=== PATIENT | female | born 1935 | race Caucasian/White ===

== ENCOUNTER → 2023-10-08 10:12 | Outpatient (REF) | payer MEDICARE, BC, SELFPAY | LOC: MRI 3T 10:12 | PROVIDERS: ATTENDING PHYSICIAN Student in an Organized Health Care Education/Training Program; FAMILY PHYSICIAN Family Medicine | DX: M25.559 Pain in unspecified hip (principal); M76.892 Other specified enthesopathies of left lower limb, excluding foot; B02.29 Other postherpetic nervous system involvement; M99.83 Other biomechanical lesions of lumbar region | CPT/HCPCS: 73721 ==

== ENCOUNTER 2023-11-09 11:21 | Emergency (ER) | payer MEDICARE, BC, SELFPAY ==
[2023-11-09] VITALS (9 sets, daily range): BP systolic 110–171; BP diastolic 25–97; PULSE 67–70; BMI 31.0
[2023-11-09 12:04] LABS: % Basophils 0.6 % (0-2); % Eosinophils 2.3 % (0-6); % Immature Granulocytes 0.3 % (0-0.5); % Lymphocytes 19.6 % (20.5-51.1); % Neutrophils 68.2 % (42.2-75.2); Absolute Basophils 0.1 10^3/uL (0-0.2); Absolute Eosinophils 0.2 10^3/uL (0-0.7); Absolute Lymphocytes 1.5 10^3/uL (1.2-3.4); Absolute Monocytes 0.7 10^3/uL (0.1-0.6); Absolute Neutrophils 5.3 10^3/uL (1.4-6.5); Hemoglobin 14.2 g/dL (12.0-16.0); Mean Corpuscular Hgb 31.2 pg (27.0-31.0); Mean Corpuscular Volume 94.5 fL (81.0-99.0); Mean Platelet Volume 10.3 fL (7.4-10.4); Nucleated Red Blood Cells % 0 %; Platelet Count 267 10^3/uL (130-400); Red Blood Cell Count 4.55 10^6/uL (4.20-5.40); Red Cell Dist. Width 12.5 % (11.5-14.5); White Blood Cell Count 7.8 10^3/uL (4.8-10.8)
[2023-11-09 12:29] LABS: Troponin I < 0.012 ng/ml
[2023-11-09 12:37] LABS: ALT (SGPT) 24 U/L (0-35); AST (SGOT) 31 U/L (14-36); Alkaline Phosphatase 74 U/L (38-126); Blood Urea Nitrogen 19 mg/dl (7-17); Calcium 9.7 mg/dl (8.4-10.2); Carbon Dioxide 25 mmol/L (22-30); Chloride 109 mmol/L (98-107); Glucose 90 mg/dl (70-99); Sodium 139 mmol/L (135-145); Total Bilirubin 0.4 mg/dl (0.2-1.3); Total Protein 6.7 g/dl (6.3-8.2); eGFR > 60.00
[2023-11-09 14:05] LABS: Urine Albumin Negative (Neg - Trace); Urine Bilirubin Negative (Negative); Urine Character Clear (Clear); Urine Color Yellow; Urine Glucose Negative (Negative); Urine Ketone Negative (Negative); Urine Leukocyte 2+ (Negative); Urine Nitrite Negative (Negative); Urine Occult Blood Negative (Negative); Urine Urobilinogen Negative (Neg - 1+)
[2023-11-09 14:25] LABS: Urine Bacteria Many (Negative); Urine White Cell 26-30 /HPF (0-5)
[2023-11-09 14:48] LABS: TSH Reflex To Free T4 3.03 uIU/ml (0.47-4.68)
--- NOTE | 2023-11-09 15:51 | EDRN ---
Dr. Meraz in to see pt at this time.
[2023-11-09] MEDS: ROCEPHIN 1000 MG IV (16:08)
--- NOTE | 2023-11-09 18:08 | ED.GENMED ---
Addendum entered and electronically signed by Luis Perez PA-C 11/12/23 07:56:
UCx shows 100k Klebsiella, sensitive to cephalosporins. No changes
Original Note:
History of Present Illness
General
Chief Complaint: Heart Rate Problem
Source: patient
Exam Limitations: none
Time Seen by Provider: 11/09/23 12:47
Nursing documentation reviewed up to this point in time: agreed with
Travel History
Have you had any contact with someone who has COVID-19?: No
Do you have any symptoms of coronavirus? Fever > 100 degrees, chills, cough, shortness of breath, sore throat, loss of taste or smell, muscle aches, or headache?: No
History of Present Illness
History of Present Illness:
88-year-old female with medical history as documented who presents to the emergency room for evaluation of palpitations. Patient reports that she has been having symptoms intermittently for 4 weeks somewhat more intense over the past 4 to 5 days.
She says that she will have brief episodes (seconds long) where she feels her heart beating irregularly/hard. She says that there is no clear trigger. There is no exertional component. She says that over the past day or 2 she also noticed that
she is having an odd dizzy sensation that will last for a minute or 2 and then resolved. She decided to come to the emergency room for assessment. She has not had any chest pain. She denies any shortness of breath. She denies any headache. No
change in vision or speech. No weakness or numbness in her extremities. She denies any abdominal or flank pain. She does admit that she has been having some increased urinary frequency over the past few days concerning for possible UTI. She has
seen cardiology in the past Dr. Sanabria but has no cardiac history that she knows of.
Past History
Past History
ED Past Medical History: Other (Postherpetic neuralgia, DJD)
ED Past Surgical History: None
Social History
Tobacco: Non-smoker
Alcohol: None
Review of Systems
Review of Systems
All Other Systems: ROS reviewed and negative except as documented in HPI and ROS
Constitutional: Denies fever or chills
EENT: Denies sore throat or runny nose
Respiratory: Denies cough or trouble breathing
Cardiac: Reports palpitations; Denies chest pain
ABD/GI: Denies abdominal pain, nausea or vomiting
: Denies flank pain
Musculoskeletal: Denies neck pain or back pain
Neurological: Reports dizzy; Denies headache, weakness or numbness
Phy Exam
Physical Exam
Physical Exam:
General: Awake, alert, oriented x3; no acute distress
Head: Normocephalic, atraumatic
Eyes: Conjunctiva normal, EOMI, pupils equal round reactive to light bilaterally
Throat: Airway intact, handling secretions
Neck: Trachea midline, supple without meningismus
Lungs: Clear to auscultation bilaterally, no wheezing, rales, rhonchi
Heart: Regular rate and rhythm, no murmurs, gallops, or rubs
Abd: Soft, non distended, nontender
Neuro: Cranial nerves intact, speech fluid, motor and sensory function intact
Skin: no rash
Extremities: No edema in extremities, equal pulses in all extremities
Scores
Heart Failure Risk
Heart Failure Risk Score: Not Applicable
Heart Score for Chest Pain Patients
STEMI patient?: Not applicable
Withdrawal Assessment of Alcohol
Withdrawal Assessment Completed?: Not applicable
Course
Orders/Labs/Results
Orders:
Orders
11/09/23 11:23
EKG [Electrocardiogram (*1)] Urgent
Reason for Study: Palpitations
EKG- Treatment ONCE
11/09/23 11:58
CMP [Comprehensive Metabolic Panel] Urgent
Complete Blood Count/With Diff Urgent
Troponin I Urgent
11/09/23 12:48
Orthostatic VS- Treatment ONCE
11/09/23 13:51
TSH Reflex To Free T4 Urgent
11/09/23 13:58
Urinalysis Reflex To Culture Urgent
Date Specimen was Collected: 11/09/23
Time Specimen was Collected: 13:56
Urine Microscopic Reflex Cult Urgent
Urine Culture Urgent
CATINA Source: U
Specimen Description:
Date Specimen was Collected: 11/09/23
Time Specimen was Collected: 13:56
11/09/23 15:39
CefTRIAXone [Rocephin] 1,000 mg IV NOW STA
Abnormal Lab Results
11/09/23 11/09/23
11:58 13:58
MCH 31.2 H pg
(27.0-31.0)
Absolute Monos (auto) 0.7 H 10^3/uL
(0.1-0.6)
Lymphocytes % 19.6 L %
(20.5-51.1)
Chloride 109 H mmol/L
(98-107)
BUN 19 H mg/dl
(7-17)
Leukocyte Esterase Rfl 2+ A
(Negative)
Urine RBC 3-6 A /HPF
(0-2)
Urine WBC (Reflex) 26-30 A /HPF
(0-5)
Urine Bacteria (Reflex) Many A
(Negative)
11/09/23 11:58
11/09/23 11:58
Vital Signs
Initial and Last Documented VS:
Initial Vital Signs
Temp Pulse Resp BP Pulse Ox
36.8 C 85 16 171/88 100
11/09/23 11:23 11/09/23 11:23 11/09/23 11:23 11/09/23 11:23 11/09/23 11:23
Last Documented Vital Signs
Temp Pulse Resp BP Pulse Ox
36.8 C 64 16 139/97 99
11/09/23 11:23 11/09/23 16:22 11/09/23 16:22 11/09/23 16:22 11/09/23 16:22
MDM/Problems Addressed
Differential Diagnosis Includes:
Palpitations: Dysrhythmia, electrolyte derangement, anxiety, PVCs/PACs
MDM/Problems Addressed:
88-year-old female presents for evaluation of intermittent palpitations also occasional feeling of dizziness. She is also reporting some urinary symptoms recently. Hypertensive in triage normalized by my assessment rest of vitals normal. Exam as
above. EKG shows sinus rhythm with no ectopy. Plan to place IV check labs including a CBC and a CMP, thyroid studies. Will check urinalysis. Will monitor on telemetry. Reassess after the above.
CBC and CMP unremarkable, troponin was sent out of triage despite patient denying any chest pain�this was negative. Her thyroid studies were unremarkable. Urinalysis was positive for infection with bacteria and pyuria in the setting of urinary
symptoms. Will treat with Rocephin here. No clear indication for admission she has been here in the emergency room for greater than 3-hour observation without additional palpitations and with no event on the monitor. Will plan to refer to
cardiology for further workup of her palpitations and will start on oral antibiotics for UTI. She will also follow-up with her primary care physician. She feels very comfortable with this plan and in fact is requesting discharge. Spoke about
return precautions all questions answered.
Acute Exacerbation and/or Progression of Chronic Illness:
Acutely hypertensive resolved without intervention continue to monitor but no additional antihypertensive indicated at present
Acute Exacerbation and/or Progression of Chronic Illness: HTN
*Pulse Oximetry
Patient hypoxic: no
*EKG
Interpreted by ED Provider?: Yes
Heart Rate: 83
Rate: normal
Rhythm: sinus
Wrights: normal axis
Interval: normal interval
QRS Pattern: normal QRS
Ischemia: no ischemia
*Critical Care Note
Total Time (30-74mins, 75-104mins- exclusive of procedures): Not Applicable
Data Reviewed
Review of Other/Old Records Reveals: Labs and Records
Source: patient
ED Attending Note
-
Portions of this chart may have been created with voice recognition software.� Occasional wrong word or��sound alike� substitutions may have occurred due to the inherent limitations of voice recognition software.
Discharge Plan
Departure
Patient Disposition: Home (Routine Discharge)
Date of Disposition: 11/09/23
Time of Disposition: 15:39
Patient with high blood pressure during this ER visit?: Yes
Discharge Problem:
Heart palpitations, Hypertension, Acute UTI
Instructions: Acute Cystitis (DC), Palpitations (DC), BLOOD PRESSURE
Prescriptions:
New
cefdinir 300 mg capsule
300 mg PO BID 7 Days Qty: 14 0RF
No Action
paroxetine HCl 20 MG tablet
20 mg PO DAILY
albuterol sulfate [Proventil HFA] 90 MCG/PUFF HFA aerosol inhaler
1 puff inhalation Q4HPRN PRN (Reason: shortness of breath) Qty: 1 0RF
Referrals:
Job Sanabria MD [Active] - Call in 1-3 days for appt
Activity Restrictions/Additional Instructions:
Thank you for visiting the Emergency Department at [facility].
1. Please schedule a follow up appointment as directed. Call first thing tomorrow morning to make an appointment.
2. If indicated, please take your medications as instructed and indicated on discharge paperwork.
3. If any of your symptoms do not improve, or persist, or become more severe within 6-12 hours, please return to the emergency department for further care.
4. Please return to the emergency department if you develop a headache, neck pain/stiffness, fever greater than 100.4F, chest pain, shortness of breath, persistent nausea, vomiting, slurred speech, difficulty walking, numbness/tingling, weakness,
signs of infection or any other symptoms that are worrisome to you.
Please call [phone] if you have any questions.
Interventions
Interventions:
*Risk Screen - Suicide Last Done: 11/09/23 11:23
*General Assessment Last Done: 11/09/23 11:23
*Neglect/Abuse Screening Last Done: 11/09/23 11:23
ED- Fall Risk Assessment Last Done: 11/09/23 13:29
*ED COVID-19 Vaccine History Last Done: 11/09/23 11:23
*Nursing Disposition Last Done: 11/09/23 16:24
ED- Cardiac Assessment Last Done: 11/09/23 13:29
ED- Pulmonary Assessment Last Done: 11/09/23 13:31
Discharge Date and Time
Discharge Date/Time: 11/09/23 16:25
== END 2023-11-09 16:25 | disposition home or self-care (01) ==
LOC: EMR 11:21
PROVIDERS: Emergency Medicine; EMERGENCY PHYSICIAN Emergency Medicine; FAMILY PHYSICIAN Family Medicine
DX: N39.0 Urinary tract infection, site not specified (principal); R00.2 Palpitations; I10 Essential (primary) hypertension
CPT/HCPCS: 99284; 96374; 80053; 81003; 81015; 84443; 84484; 85025; 87077; 87086; 87186; 93005

== ENCOUNTER → 2023-12-13 13:22 | Outpatient (REF) | payer MEDICARE, BC, SELFPAY | LOC: DHCBS HW 13:22 | PROVIDERS: ATTENDING PHYSICIAN Physician Assistant Medical; FAMILY PHYSICIAN Family Medicine | DX: R06.02 Shortness of breath (principal); R00.2 Palpitations | CPT/HCPCS: 93306 ==

== ENCOUNTER → 2024-01-02 07:41 | Outpatient (REF) | payer MEDICARE, BC, SELFPAY | LOC: DHCBC/DCA 07:41 | PROVIDERS: ATTENDING PHYSICIAN Physician Assistant Medical; FAMILY PHYSICIAN Family Medicine | DX: R06.02 Shortness of breath (principal) | CPT/HCPCS: 78452; 93017; A9500; J2785 ==

== ENCOUNTER → 2024-02-20 10:13 | Outpatient (REF) | payer MEDICARE, BC, SELFPAY | LOC: HWRAD 10:13 | PROVIDERS: ATTENDING PHYSICIAN Physician Assistant Medical; FAMILY PHYSICIAN Family Medicine | DX: R06.02 Shortness of breath (principal) | CPT/HCPCS: 71046 ==

== ENCOUNTER 2025-01-06 22:02 | Emergency (ER) | payer MEDICARE, BC, SELFPAY ==
[2025-01-06 22:06] VITALS: BP 176/89
[2025-01-06 22:36] LABS: % Basophils 0.2 % (0-2); % Eosinophils 0.1 % (0-6); % Immature Granulocytes 0.7 % (0-0.5); % Lymphocytes 8.6 % (20.5-51.1); % Monocytes 1.1 % (1.7-9.3); % Neutrophils 89.3 % (42.2-75.2); Absolute Immature Granulocytes 0.1 10^3/uL (0-0.05); Absolute Lymphocytes 0.9 10^3/uL (1.2-3.4); Absolute Monocytes 0.1 10^3/uL (0.1-0.6); Absolute Neutrophils 8.9 10^3/uL (1.4-6.5); Hematocrit 40.6 % (37.0-47.0); Hemoglobin 13.7 g/dL (12.0-16.0); Mean Corp Hgb Conc. 33.7 g/dL (33.0-37.0); Mean Corpuscular Hgb 30.3 pg (27.0-31.0); Mean Corpuscular Volume 89.8 fL (81.0-99.0); Mean Platelet Volume 10.2 fL (7.4-10.4); Nucleated Red Blood Cells % 0 %; Platelet Count 287 10^3/uL (130-400); Red Blood Cell Count 4.52 10^6/uL (4.20-5.40); Red Cell Dist. Width 12.6 % (11.5-14.5); White Blood Cell Count 9.9 10^3/uL (4.8-10.8)
[2025-01-06 22:50] LABS: ALT (SGPT) 25 U/L (0-35); AST (SGOT) 25 U/L (14-36); Albumin 3.8 g/dl (3.5-5.0); Alkaline Phosphatase 97 U/L (38-126); Blood Urea Nitrogen 15 mg/dl (7-17); Calcium 9.1 mg/dl (8.4-10.2); Carbon Dioxide 24 mmol/L (22-30); Chloride 110 mmol/L (98-107); Glucose 148 mg/dl (70-99); Potassium 4.9 mmol/L (3.5-5.1); Sodium 141 mmol/L (135-145); Total Bilirubin 0.5 mg/dl (0.2-1.3); Total Protein 7.1 g/dl (6.3-8.2); eGFR > 60.00
[2025-01-06 22:59] LABS: NT-proBNP 321 pg/ml; Troponin I < 0.012 ng/ml
--- NOTE | 2025-01-06 23:37 | ED.GENMED ---
History of Present Illness
General
Chief Complaint: Breathing Problem
Source: patient
Exam Limitations: none
Time Seen by Provider: 01/06/25 23:27
Nursing documentation reviewed up to this point in time: agreed with
History of Present Illness
History of Present Illness:
This is an 89-year-old woman who has history of anxiety, lumbar disc disease, prior history of pneumonia who presents with complaints of cough, nasal congestion that began 5 days ago. She has not had a fever nor chills. Cough has been
dry/nonproductive.
No improvement in symptoms with [id number] cough/cold medications thus she presented to urgent care today where she states she had chest x-ray that reportedly showed no evidence of pneumonia but concern for decreased volume in the lower lungs.
She was prescribed a Z-Paxton and Medrol Dosepak. Tonight while attempting to take a deep breath this triggered a coughing fit which persisted accompanied with shortness of breath.
Admits to feeling improved since arrival to the ED. She arrives with her son and is worried that he will need to get to work and she is eager to be discharged to home.
She denies chest pain. No leg pain or swelling. No dizziness or lightheadedness.
No history of chronic lung disease including COPD nor asthma. No reported history of CAD/CHF.
Past History
Past History
ED Past Medical History: Hypercholesterolemia and Other (Postherpetic neuralgia, DJD; lumbar disc disease; osteoarthritis)
ED Past Surgical History: None
Social History
Tobacco: Non-smoker
Alcohol: None
Personal:
Living: with family
Employment: Retired
Family History
Family History: Other (Noncontributory)
Phy Exam
Physical Exam
Physical Exam:
GENERAL: 89-year-old woman appears her stated age, bright and alert, pleasant, appears in no acute distress. Ambulatory about exam room with steady unaided gait. No cough appreciated during exam. Speaking in full sentences. Respirations are easy
and nonlabored. She is noted to have mild nasal, stuffy voice.
EYE: anicteric
NECK: Supple, nontender, no meningismus, no significant adenopathy. No JVD.
ENT: posterior pharynx is clear, oral mucosa is moist. TM clear b/l, nares have mildly boggy turbinates with scant clear rhinorrhea.
CARDIAC: Regular rate and rhythm. no murmur.
LUNGS: Clear breath sounds bilaterally, no acute respiratory distress, no wheezes/rales/rhonchi
ABDOMEN: Soft, nondistended, without focal tenderness, no r/g, no cvat. normoactive BS.
NEUROLOGICAL: Alert and oriented x3, no focal neuro deficits. Gait is anthony and steady.
SKIN: Warm and dry, normal color, skin intact. No rash.
MUSCULOSKELETAL: No C/C/E. peripheral pulses are full and equal b/l. No palpable tenderness.
PSYCH: Normal and appropriate interaction.
Scores
Heart Failure Risk
Heart Failure Risk Score: Not Applicable
Course
Orders/Labs/Results
Orders:
Orders
01/06/25 22:12
Electrocardiogram (*1) Urgent
Reason for Study: Other
Other Reason for Exam: Respiratory Distress
EKG- Treatment ONCE
01/06/25 22:25
Complete Blood Count/With Diff Urgent
Comprehensive Metabolic Panel Urgent
NT-proBNP Urgent
Troponin I Urgent
Abnormal Lab Results
01/06/25
22:25
Abs Immat Gran (auto) 0.1 H 10^3/uL
(0-0.05)
Absolute Neuts (auto) 8.9 H 10^3/uL
(1.4-6.5)
Absolute Lymphs (auto) 0.9 L 10^3/uL
(1.2-3.4)
Immature Gran % 0.7 H %
(0-0.5)
Neutrophils % 89.3 H %
(42.2-75.2)
Lymphocytes % 8.6 L %
(20.5-51.1)
Monocytes % 1.1 L %
(1.7-9.3)
Chloride 110 H mmol/L
(98-107)
Glucose 148 H mg/dl
(70-99)
01/06/25 22:25
01/06/25 22:25
Vital Signs
Initial and Last Documented VS:
Initial Vital Signs
Temp Pulse Resp BP Pulse Ox
97.8 F 91 22 176/89 96
01/06/25 22:06 01/06/25 22:06 01/06/25 22:06 01/06/25 22:06 01/06/25 22:06
Last Documented Vital Signs
Temp Pulse Resp BP Pulse Ox
98.2 F 81 20 167/82 95
01/06/25 23:42 01/06/25 23:42 01/06/25 23:42 01/06/25 23:42 01/06/25 23:42
MDM/Problems Addressed
Differential Diagnosis Includes:
Concern for viral URI, bronchitis, pneumonia. Patient is noted to have somewhat nasal, stuffy voice�more consistent with URI symptoms.
CHF is much less likely.
No risk factors for thromboembolism.
Labs are reassuring, negative troponin, normal BNP. Unremarkable EKG.
Patient exhibits no cough during my exam, respirations are easy and nonlabored. Lungs are clear to auscultation however concern for potential occult pneumonia thus I have offered chest x-ray today for which I can personally review. She declines
chest x-ray.
I have also offered DuoNeb nebulizer which she declined stating she was given a nebulizer treatment at urgent care and reports that it was not all that effective however admits that her cough appears to be intermittent paroxysms which could be
potential for pertussis thus I agree with continuing the Z-Paxton.
Recommend continuing Medrol Dosepak as well and I have offered a prescription for albuterol inhaler to have on hand if coughing fit recurs as well as a trial of Tessalon pearls for as needed cough.
Patient agreeable with these prescriptions.
Recommend prompt follow-up with PCP for recheck.
*Pulse Oximetry
Patient hypoxic: no
*Critical Care Note
Total Time (30-74mins, 75-104mins- exclusive of procedures): Not Applicable
ED Attending Note
-
Portions of this chart may have been created with voice recognition software.� Occasional wrong word or��sound alike� substitutions may have occurred due to the inherent limitations of voice recognition software.
Discharge Plan
Departure
Patient Disposition: Home (Routine Discharge)
Date of Disposition: 01/06/25
Time of Disposition: 23:37
Patient with high blood pressure during this ER visit?: Yes
Condition: Good
Discharge Problem:
Acute bronchitis
Instructions: Acute bronchitis in adults, Cough in adults - ED discharge instructions, BLOOD PRESSURE
Prescriptions:
New
albuterol sulfate 90 mcg/actuation aerosol powdr breath activated
2 inh inhalation QIDPRN PRN (Reason: cough, shortness of breath) Qty: 1 0RF
benzonatate 200 mg capsule
200 mg PO TID PRN (Reason: cough) Qty: 20 0RF
No Action
paroxetine HCl 20 MG tablet
20 mg PO DAILY
albuterol sulfate [Proventil HFA] 90 MCG/PUFF HFA aerosol inhaler
1 puff inhalation Q4HPRN PRN (Reason: shortness of breath) Qty: 1 0RF
cefdinir 300 mg capsule
300 mg PO BID 7 Days Qty: 14 0RF
Referrals:
Tana Morales CRNP [Family Provider] - Call in 1-3 days for appt
Interventions
Interventions:
*Risk Screen - Suicide Last Done: 01/06/25 22:06
*General Assessment Last Done: 01/06/25 22:06
*Neglect/Abuse Screening Last Done: 01/06/25 22:06
*Nursing Disposition Last Done: 01/06/25 23:50
ED- Cardiac Assessment Last Done: 01/06/25 23:50
ED- Pulmonary Assessment Last Done: 01/06/25 23:50
Discharge Date and Time
Discharge Date/Time: 01/06/25 23:50
Print Language: CHINESE
[2025-01-06 23:42] VITALS: BP 167/82
== END 2025-01-06 23:50 | disposition home or self-care (01) ==
LOC: EMR 22:02
PROVIDERS: EMERGENCY PHYSICIAN Emergency Medicine; FAMILY PHYSICIAN Nurse Practitioner Family
DX: J20.9 Acute bronchitis, unspecified (principal); E78.00 Pure hypercholesterolemia, unspecified; Z87.01 Personal history of pneumonia (recurrent)
CPT/HCPCS: 99284; 80053; 83880; 84484; 85025; 93005